=== PATIENT | female | born 1935 | race Caucasian/White ===

== ENCOUNTER 2017-10-17 18:46 | Inpatient (IN) | payer MEDICARE ==
[~2017-10-17] VITALS: Ht 162.6 cm; Wt 37.6 kg
[2017-10-17] MEDS ORDERED: SODIUM CHLORIDE 0.9% 1,000 ML IV ONE (18:54)
[2017-10-17] MEDS ORDERED: DIPHENHYDRAMINE 50MG/ML VIAL IV STA (18:54)
[2017-10-17] MEDS ORDERED: MORPHINE SULFATE 4 MG/ML CPJ (NOT FOR IM USE) IV STA (18:54)
[2017-10-17 19:51] LABS: HEMATOCRIT. 28.8 % (36.0-48.0); HEMOGLOBIN. 8.9 g/dL (12.0-16.0); MEAN CORPUSCULAR HEMOGLOBIN 22.5 pg (28.0-32.0); MEAN CORPUSCULAR VOLUME 72.9 fL (81.0-99.0); MEAN PLATELET VOLUME 8.5 fl (7.4-10.4); PLATELET 266 x1000/uL (130-400); RED BLOOD CELL COUNT 3.95 mill/uL (4.2-5.4); RED CELL DISTRIBUTION WIDTH 20.4 % (11.6-14.6)
[2017-10-17 19:57] LABS: INR 0.9; PROTHROMBIN TIME 9.7 sec (9.4-11.6)
[2017-10-17 19:58] LABS: CHLORIDE 107 mEq/L (98-107)
[2017-10-17 20:02] LABS: ETHANOL BLOOD < 10 mg/dL
[2017-10-17 21:11] LABS: PLATELET ESTIMATE NORMAL
[2017-10-17] MEDS ORDERED: HYDROCODONE/ACETAMINOPHEN 10/325MG TABLET PO ONE (22:00)
[2017-10-17] MEDS ORDERED: MORPHINE SULFATE 2 MG/ML CPJ (NOT FOR IM USE) IV ONE (23:30)
[2017-10-18] VITALS (7 sets, daily range): BP systolic 101–191; BP diastolic 59–85
[2017-10-18] MEDS ORDERED: ONDANSETRON HCL 4MG/2ML VIAL IV PRN (03:15)
[2017-10-18] MEDS ORDERED: DEXT 5%/0.45% NACL KCL 20MEQ/L 1,000 ML IV SCH (05:00)
[2017-10-18] MEDS ORDERED: CLONIDINE 0.1MG TABLET PO PRN (09:15)
[2017-10-18] MEDS ORDERED: LOSARTAN POTASSIUM 50 MG TABLET PO SCH (10:45)
[2017-10-18] MEDS ORDERED: HYDROCODONE/ACETAMINOPHEN 5/325MG TABLET PO PRN (11:00)
[2017-10-18 12:16] LABS: TOTAL IRON BINDING CAPACITY 313 ug/dL (250-450)
[2017-10-18] MEDS: DOCUSATE SODIUM 250MG CAPSULE PO SCH (16:15)
[2017-10-18] MEDS: LOSARTAN POTASSIUM 100 MG TABLET PO SCH (16:30)
[2017-10-18] MEDS: FUROSEMIDE 20MG TABLET PO SCH (18:34)
[2017-10-18] MEDS: NIFEDIPINE XL 30MG TAB PO SCH (18:35)
[2017-10-18] MEDS: FERROUS SULFATE 325MG TABLET PO SCH (18:35)
[2017-10-18] MEDS: MORPHINE SULFATE 4 MG/ML CPJ (NOT FOR IM USE) IV PRN (18:36)
[2017-10-19 00:05] VITALS: BP 125/86
[2017-10-19 04:09] VITALS: BP 118/54
[2017-10-19 05:41] LABS: HEMATOCRIT 28.6 % (36.0-48.0); HEMOGLOBIN 8.9 g/dL (12.0-16.0); MEAN CORPUSCULAR HEMOGLOBIN 22.6 pg (28.0-32.0); MEAN CORPUSCULAR VOLUME 72.9 fL (81.0-99.0); PLATELET 235 x1000/uL (130-400); RED BLOOD CELL COUNT 3.93 mill/uL (4.2-5.4); RED CELL DISTRIBUTION WIDTH 20.1 % (11.6-14.6)
[2017-10-19 06:18] LABS: CHLORIDE 104 mEq/L (98-107)
[2017-10-19 08:00] VITALS: BP 130/53
[2017-10-19] MEDS: FERROUS SULFATE 325MG TABLET PO SCH ×3 (08:51→17:50)
[2017-10-19] MEDS: DOCUSATE SODIUM 250MG CAPSULE PO SCH (08:51)
[2017-10-19] MEDS: FUROSEMIDE 20MG TABLET PO SCH (08:51)
[2017-10-19] MEDS: NIFEDIPINE XL 30MG TAB PO SCH (08:51)
[2017-10-19] MEDS: LOSARTAN POTASSIUM 100 MG TABLET PO SCH (08:51)
[2017-10-19] MEDS: MORPHINE SULFATE 4 MG/ML CPJ (NOT FOR IM USE) IV PRN (09:56)
[2017-10-19] MEDS: DEXT 5%/0.45% NACL 1000ML 1,000 ML IV SCH (11:00)
[2017-10-19 12:00] VITALS: BP 116/59
[2017-10-19 16:00] VITALS: BP 148/68
[2017-10-19 20:00] VITALS: BP 133/63
[2017-10-19 21:45] LABS: T4 FREE 1.22 ng/dL (0.76-1.46)
[2017-10-19 22:01] LABS: FOLIC ACID (FOLATE) SERUM 4.4 ng/mL (>5.38)
[2017-10-20] VITALS: BP 141/70
[2017-10-20 04:00] VITALS: BP 165/71
[2017-10-20] MEDS: DEXT 5%/0.45% NACL 1000ML 1,000 ML IV SCH (06:50)
[2017-10-20 08:00] VITALS: BP 157/69
[2017-10-20] MEDS: DOCUSATE SODIUM 250MG CAPSULE PO SCH (08:42)
[2017-10-20] MEDS: LOSARTAN POTASSIUM 100 MG TABLET PO SCH (08:42)
[2017-10-20] MEDS: FERROUS SULFATE 325MG TABLET PO SCH ×3 (08:42→16:50)
[2017-10-20] MEDS: NIFEDIPINE XL 30MG TAB PO SCH (08:42)
[2017-10-20 12:38] VITALS: BP 140/78
[2017-10-20] MEDS ORDERED: BISACODYL 10MG SUPP PR PRN (14:00)
[2017-10-20 15:18] LABS: LDL CHOLESTEROL 98 mg/dL (5-100)
[2017-10-20 15:21] LABS: HDL CHOLESTEROL 40 mg/dL (40-59)
[2017-10-20 16:15] VITALS: BP 125/77
[2017-10-20] MEDS: CHOLECALCIFEROL (D3) 1000 UNIT TABLET PO SCH (16:49)
[2017-10-20] MEDS: MORPHINE SULFATE 4 MG/ML CPJ (NOT FOR IM USE) IV PRN (16:49)
[2017-10-20] MEDS: SUCRALFATE 1 G/10 ML UDC PO SCH ×2 (16:50→22:01)
[2017-10-20] MEDS: OMEPRAZOLE 20MG CAPSULE EXTENDED RELEASE PO SCH ×2 (16:53→22:00)
[2017-10-20] MEDS ORDERED: SPIRONOLACTONE 25MG TABLET PO SCH (17:00)
[2017-10-20 20:00] VITALS: BP 139/65
[2017-10-20] MEDS ORDERED: ATORVASTATIN CALCIUM 20MG TABLET PO SCH (21:00)
[2017-10-21] VITALS: BP 143/65
[2017-10-21 04:00] VITALS: BP 151/63
[2017-10-21] MEDS: SUCRALFATE 1 G/10 ML UDC PO SCH ×3 (06:30→17:37)
[2017-10-21] MEDS: DEXT 5%/0.45% NACL 1000ML 1,000 ML IV SCH (06:30)
[2017-10-21] MEDS: OMEPRAZOLE 20MG CAPSULE EXTENDED RELEASE PO SCH (06:34)
[2017-10-21] MEDS: FERROUS SULFATE 325MG TABLET PO SCH ×2 (06:52→09:04)
[2017-10-21 06:57] LABS: MEAN CORPUSCULAR HEMOGLOBIN 22.9 pg (28.0-32.0); MEAN CORPUSCULAR VOLUME 73.8 fL (81.0-99.0); PLATELET 318 x1000/uL (130-400); RED BLOOD CELL COUNT 3.93 mill/uL (4.2-5.4)
[2017-10-21 07:09] LABS: CHLORIDE 106 mEq/L (98-107)
[2017-10-21 08:00] VITALS: BP 183/78
[2017-10-21] MEDS: DOCUSATE SODIUM 250MG CAPSULE PO SCH (09:04)
[2017-10-21] MEDS: LOSARTAN POTASSIUM 100 MG TABLET PO SCH (09:04)
[2017-10-21] MEDS: CHOLECALCIFEROL (D3) 1000 UNIT TABLET PO SCH (09:04)
[2017-10-21] MEDS: NIFEDIPINE XL 30MG TAB PO SCH (09:05)
[2017-10-21] MEDS ORDERED: CLOPIDOGREL 75MG TABLET PO SCH (09:15)
[2017-10-21] MEDS ORDERED: DOCUSATE SODIUM SUGAR FREE 100MG/10ML UDC PO SCH (10:30)
[2017-10-21] MEDS ORDERED: DOCUSATE SODIUM SUGAR FREE 100MG/10ML UDC NG SCH (11:00)
[2017-10-21 12:00] VITALS: BP 111/57
[2017-10-21] MEDS: MORPHINE SULFATE 4 MG/ML CPJ (NOT FOR IM USE) IV PRN ×2 (13:24→17:37)
[2017-10-21 16:00] VITALS: BP 110/56
[2017-10-21 17:37] VITALS: BP 110/56
== END 2017-10-21 18:33 | DRG 64 ==
LOC: ER 18:46 → 6EST 22:56 → EDBEDREQ 22:58 → EDBEDREQTM 22:58 → ENRESERV 23:42
PROVIDERS: ADMIT Internal Medicine; ATTEND Internal Medicine
DX: I63.9 Cerebral infarction, unspecified (principal); E43 Unspecified severe protein-calorie malnutrition; I50.41 Acute combined systolic (congestive) and diastolic (congestive) heart failure; Z68.1 Body mass index [BMI] 19.9 or less, adult; D50.9 Iron deficiency anemia, unspecified; M54.5 Low back pain; M81.0 Age-related osteoporosis without current pathological fracture; M34.9 Systemic sclerosis, unspecified; M48.02 Spinal stenosis, cervical region; M48.061 Spinal stenosis, lumbar region without neurogenic claudication; I11.0 Hypertensive heart disease with heart failure; E78.00 Pure hypercholesterolemia, unspecified; E78.5 Hyperlipidemia, unspecified; I07.1 Rheumatic tricuspid insufficiency; I27.20 Pulmonary hypertension, unspecified; I73.00 Raynaud's syndrome without gangrene; J44.9 Chronic obstructive pulmonary disease, unspecified; K22.0 Achalasia of cardia; M51.36 Other intervertebral disc degeneration, lumbar region; Z96.612 Presence of left artificial shoulder joint; Z96.641 Presence of right artificial hip joint; Z87.891 Personal history of nicotine dependence; Z90.710 Acquired absence of both cervix and uterus; Z79.899 Other long term (current) drug therapy; W18.39XA Other fall on same level, initial encounter; Y93.89 Activity, other specified; Y92.89 Other specified places as the place of occurrence of the external cause; Y99.8 Other external cause status
CPT/HCPCS: 36415; 70551; 71045; 72131; 72141; 72146; 72148; 72192; 80048; 80053; 80061; 82270; 82550; 82607; 82728; 82746; 83036; 83540; 83550; 83690; 83880; 84439; 84443; 84481; 84484; 85025; 85027; 85610; 92610; 93005; 93306; 93880; 93970; 96361; 96374; 96375; 97110; 97162; 97166; 97530; 99285; G0482; J1200; J2270; J3490; J7030

== ENCOUNTER 2017-10-21 19:26 | Inpatient (IN) | payer MEDICARE ==
[~2017-10-21] VITALS: Ht 162.6 cm; Wt 37.6 kg
[2017-10-21 20:00] VITALS: BP 132/61
[2017-10-21] MEDS ORDERED: CLONIDINE 0.1MG TABLET PO PRN (20:00)
[2017-10-21] MEDS ORDERED: MORPHINE SULFATE 4 MG/ML CPJ (NOT FOR IM USE) IV PRN (20:00)
[2017-10-21] MEDS ORDERED: BISACODYL 10MG SUPP PR PRN (20:00)
[2017-10-21 21:00] VITALS: BP 132/61
[2017-10-21] MEDS ORDERED: ONDANSETRON 4MG ODT PO PRN (21:00)
[2017-10-21] MEDS: ATORVASTATIN CALCIUM 20MG TABLET PO SCH (21:40)
[2017-10-21] MEDS: SUCRALFATE 1 G/10 ML UDC PO SCH (21:40)
[2017-10-21] MEDS: OMEPRAZOLE 20MG CAPSULE EXTENDED RELEASE PO SCH (21:41)
[2017-10-21] MEDS: DEXT 5%/0.45% NACL 1000ML 1,000 ML IV SCH (22:30)
[2017-10-22] MEDS: SUCRALFATE 1 G/10 ML UDC PO SCH ×4 (06:25→21:43)
[2017-10-22 07:44] LABS: HEMATOCRIT. 29.8 % (36.0-48.0); HEMOGLOBIN. 9.1 g/dL (12.0-16.0); MEAN CORPUSCULAR HEMOGLOBIN 22.5 pg (28.0-32.0); MEAN CORPUSCULAR VOLUME 73.1 fL (81.0-99.0); MEAN PLATELET VOLUME 7.9 fl (7.4-10.4); PLATELET 359 x1000/uL (130-400); RED BLOOD CELL COUNT 4.07 mill/uL (4.2-5.4); RED CELL DISTRIBUTION WIDTH 19.5 % (11.6-14.6)
[2017-10-22 07:47] LABS: CHLORIDE 105 mEq/L (98-107)
[2017-10-22 08:05] VITALS: BP 168/72
[2017-10-22] MEDS: CLOPIDOGREL 75MG TABLET PO SCH (09:47)
[2017-10-22] MEDS: FERROUS SULFATE 325MG TABLET PO SCH ×3 (09:47→17:16)
[2017-10-22] MEDS: CHOLECALCIFEROL (D3) 1000 UNIT TABLET PO SCH (09:48)
[2017-10-22] MEDS: NIFEDIPINE XL 30MG TAB PO SCH (09:49)
[2017-10-22] MEDS: HYDROCODONE/ACETAMINOPHEN 5/325MG TABLET PO PRN (09:49)
[2017-10-22] MEDS: LOSARTAN POTASSIUM 100 MG TABLET PO SCH (09:50)
[2017-10-22] MEDS: FOLIC ACID 1MG TABLET PO SCH (09:50)
[2017-10-22] MEDS: OMEPRAZOLE 20MG CAPSULE EXTENDED RELEASE PO SCH ×2 (09:50→21:43)
[2017-10-22] MEDS: DOCUSATE SODIUM SUGAR FREE 100MG/10ML UDC PO SCH (09:50)
[2017-10-22 10:14] LABS: NUCLEATED RED BLOOD CELLS 1 /100 WBC; PLATELET ESTIMATE NORMAL
[2017-10-22] MEDS: DEXT 5%/0.45% NACL 1000ML 1,000 ML IV SCH (18:37)
[2017-10-22 20:00] VITALS: BP 129/56
[2017-10-22] MEDS: ENOXAPARIN 30MG/0.3ML SYR SUBCUT SCH (21:43)
[2017-10-22] MEDS: ATORVASTATIN CALCIUM 20MG TABLET PO SCH (21:43)
[2017-10-22] MEDS: NEOMY SULF/BACITRAC ZN/POLY OINT 28GM TOP SCH (22:18)
[2017-10-23] MEDS: SUCRALFATE 1 G/10 ML UDC PO SCH ×4 (06:01→20:53)
[2017-10-23] MEDS: LOSARTAN POTASSIUM 100 MG TABLET PO SCH (08:35)
[2017-10-23] MEDS: HYDROCODONE/ACETAMINOPHEN 5/325MG TABLET PO PRN ×2 (08:36→14:34)
[2017-10-23] MEDS: DOCUSATE SODIUM SUGAR FREE 100MG/10ML UDC PO SCH (09:53)
[2017-10-23] MEDS: OMEPRAZOLE 20MG CAPSULE EXTENDED RELEASE PO SCH ×2 (09:54→20:53)
[2017-10-23] MEDS: FERROUS SULFATE 325MG TABLET PO SCH ×3 (09:54→17:00)
[2017-10-23] MEDS: CHOLECALCIFEROL (D3) 1000 UNIT TABLET PO SCH (09:54)
[2017-10-23] MEDS: NIFEDIPINE XL 30MG TAB PO SCH (09:55)
[2017-10-23] MEDS: FOLIC ACID 1MG TABLET PO SCH (09:55)
[2017-10-23] MEDS: CLOPIDOGREL 75MG TABLET PO SCH (09:55)
[2017-10-23] MEDS: NEOMY SULF/BACITRAC ZN/POLY OINT 28GM TOP SCH ×2 (10:02→20:53)
[2017-10-23] MEDS: DEXT 5%/0.45% NACL 1000ML 1,000 ML IV SCH (13:00)
[2017-10-23 20:00] VITALS: BP 158/68
[2017-10-23] MEDS: ATORVASTATIN CALCIUM 20MG TABLET PO SCH (20:53)
[2017-10-23] MEDS: ENOXAPARIN 30MG/0.3ML SYR SUBCUT SCH (20:53)
[2017-10-24] MEDS: SUCRALFATE 1 G/10 ML UDC PO SCH ×4 (06:25→20:43)
[2017-10-24 06:30] LABS: HEMATOCRIT. 28.1 % (36.0-48.0); HEMOGLOBIN. 8.8 g/dL (12.0-16.0); MEAN CORPUSCULAR HEMOGLOBIN 23.1 pg (28.0-32.0); MEAN CORPUSCULAR VOLUME 73.6 fL (81.0-99.0); MEAN PLATELET VOLUME 7.6 fl (7.4-10.4); PLATELET 368 x1000/uL (130-400); RED BLOOD CELL COUNT 3.82 mill/uL (4.2-5.4); RED CELL DISTRIBUTION WIDTH 19.8 % (11.6-14.6)
[2017-10-24 07:01] LABS: CHLORIDE 109 mEq/L (98-107)
[2017-10-24 07:08] LABS: FOLIC ACID (FOLATE) SERUM 8.1 ng/mL (>5.38)
[2017-10-24 07:13] LABS: PHOSPHORUS 2.5 mg/dL (2.5-4.9); TOTAL IRON BINDING CAPACITY 279 ug/dL (250-450)
[2017-10-24 08:05] VITALS: BP 193/66
[2017-10-24] MEDS: DEXT 5%/0.45% NACL 1000ML 1,000 ML IV SCH (08:27)
[2017-10-24] MEDS: NIFEDIPINE XL 30MG TAB PO SCH (08:28)
[2017-10-24] MEDS: FERROUS SULFATE 325MG TABLET PO SCH ×3 (08:30→16:54)
[2017-10-24] MEDS: LOSARTAN POTASSIUM 100 MG TABLET PO SCH (08:30)
[2017-10-24] MEDS: CHOLECALCIFEROL (D3) 1000 UNIT TABLET PO SCH (08:31)
[2017-10-24] MEDS: CLOPIDOGREL 75MG TABLET PO SCH (08:32)
[2017-10-24] MEDS: FOLIC ACID 1MG TABLET PO SCH (08:33)
[2017-10-24] MEDS: OMEPRAZOLE 20MG CAPSULE EXTENDED RELEASE PO SCH ×2 (08:34→20:44)
[2017-10-24] MEDS: DOCUSATE SODIUM SUGAR FREE 100MG/10ML UDC PO SCH (08:36)
[2017-10-24] MEDS: NEOMY SULF/BACITRAC ZN/POLY OINT 28GM TOP SCH ×2 (08:39→20:43)
[2017-10-24] MEDS ORDERED: POTASSIUM CHLORIDE 20MEQ TABLET SR PO SCH (09:30)
[2017-10-24 10:24] LABS: PLATELET ESTIMATE NORMAL
[2017-10-24 20:00] VITALS: BP 136/65
[2017-10-24] MEDS: ENOXAPARIN 30MG/0.3ML SYR SUBCUT SCH (20:43)
[2017-10-24] MEDS: ATORVASTATIN CALCIUM 20MG TABLET PO SCH (20:44)
[2017-10-25] MEDS: DEXT 5%/0.45% NACL 1000ML 1,000 ML IV SCH ×2 (04:25→23:12)
[2017-10-25] MEDS: SUCRALFATE 1 G/10 ML UDC PO SCH ×4 (06:19→18:30)
[2017-10-25 08:00] VITALS: BP 146/60
[2017-10-25] MEDS: DOCUSATE SODIUM SUGAR FREE 100MG/10ML UDC PO SCH (09:33)
[2017-10-25] MEDS: FERROUS SULFATE 325MG TABLET PO SCH ×3 (09:33→17:00)
[2017-10-25] MEDS: OMEPRAZOLE 20MG CAPSULE EXTENDED RELEASE PO SCH (09:33)
[2017-10-25] MEDS: CLOPIDOGREL 75MG TABLET PO SCH (09:34)
[2017-10-25] MEDS: CHOLECALCIFEROL (D3) 1000 UNIT TABLET PO SCH (09:34)
[2017-10-25] MEDS: LOSARTAN POTASSIUM 100 MG TABLET PO SCH (09:34)
[2017-10-25] MEDS: NIFEDIPINE XL 30MG TAB PO SCH (09:34)
[2017-10-25] MEDS: FOLIC ACID 1MG TABLET PO SCH (09:34)
[2017-10-25] MEDS: HYDROCODONE/ACETAMINOPHEN 5/325MG TABLET PO PRN (09:35)
[2017-10-25] MEDS: NEOMY SULF/BACITRAC ZN/POLY OINT 28GM TOP SCH ×2 (10:39→23:13)
[2017-10-25] MEDS ORDERED: HYDROCODONE/ACETAMINOPHEN 10/325MG TABLET PO PRN (16:45)
[2017-10-25] MEDS ORDERED: CARISOPRODOL 350 MG TABLET PO PRN (16:45)
[2017-10-25] MEDS: LIDOCAINE 5% PATCH TOP SCH (17:36)
[2017-10-25 20:00] VITALS: BP 155/59
[2017-10-25] MEDS: ATORVASTATIN CALCIUM 20MG TABLET PO SCH (21:00)
[2017-10-25] MEDS: ENOXAPARIN 30MG/0.3ML SYR SUBCUT SCH ×2 (21:00→23:48)
[2017-10-25] MEDS ORDERED: ONDANSETRON 4MG ODT PO PRN (22:30)
[2017-10-26] MEDS ORDERED: ACETAMINOPHEN 650MG SUPP PR PRN
[2017-10-26] MEDS ORDERED: IRON SUCROSE COMPLEX 100 MG in SODIUM CHLORIDE 0.9% 100 ML IV SCH (05:00)
[2017-10-26 06:57] LABS: HEMATOCRIT. 28.8 % (36.0-48.0); MEAN CORPUSCULAR HEMOGLOBIN 23.4 pg (28.0-32.0); MEAN CORPUSCULAR VOLUME 74.5 fL (81.0-99.0); MEAN PLATELET VOLUME 7.8 fl (7.4-10.4); PLATELET 361 x1000/uL (130-400); RED BLOOD CELL COUNT 3.86 mill/uL (4.2-5.4)
[2017-10-26 07:20] LABS: CHLORIDE 109 mEq/L (98-107)
[2017-10-26 08:00] VITALS: BP 191/67
[2017-10-26] MEDS: LIDOCAINE 5% PATCH TOP SCH (08:12)
[2017-10-26] MEDS: NEOMY SULF/BACITRAC ZN/POLY OINT 28GM TOP SCH (08:16)
[2017-10-26] MEDS ORDERED: PANTOPRAZOLE SODIUM 40 MG/VIAL IV SCH (09:00)
[2017-10-26] MEDS ORDERED: HYDRALAZINE 20MG/ML VIAL IV PRN (10:30)
[2017-10-26] MEDS ORDERED: KCL 20MEQ/100ML PREMIX 100 ML IV SCH (11:00)
[2017-10-26] MEDS ORDERED: HYDRALAZINE 10 MG in SODIUM CHLORIDE 0.9% 50 ML IV PRN (12:00)
[2017-10-26] MEDS ORDERED: MORPHINE SULFATE 4 MG/ML CPJ (NOT FOR IM USE) IV PRN ×2 (12:00)
[2017-10-26 13:07] VITALS: BP 199/71
[2017-10-26 15:14] LABS: PLATELET ESTIMATE NORMAL
[2017-10-26] MEDS ORDERED: OMEP40CA34 PO (22:15)
[2017-10-26] MEDS ORDERED: SPIR25TA6 PO (22:15)
[2017-10-26] MEDS ORDERED: RANI150T43 PO (22:15)
[2017-10-26] MEDS ORDERED: SUCR1TAB30 MT (22:15)
[2017-10-26] MEDS ORDERED: CHOL20004 PO (22:15)
[2017-10-26] MEDS ORDERED: FERR324T4 PO (22:15)
[2017-10-26] MEDS ORDERED: ATOR20TA MT (22:15)
[2017-10-30 17:08] LABS: 25-HYDROXY VITAMIN D3 11 ng/mL (.)
== END 2017-10-26 14:33 | disposition short-term general hospital (02) | DRG 64 ==
PROVIDERS: ADMIT Physical Medicine & Rehabilitation Spinal Cord Injury Medicine; ATTEND Internal Medicine
DX: I63.9 Cerebral infarction, unspecified (principal); E43 Unspecified severe protein-calorie malnutrition; I50.41 Acute combined systolic (congestive) and diastolic (congestive) heart failure; Z68.1 Body mass index [BMI] 19.9 or less, adult; I73.00 Raynaud's syndrome without gangrene; K22.0 Achalasia of cardia; M34.9 Systemic sclerosis, unspecified; E78.00 Pure hypercholesterolemia, unspecified; M81.0 Age-related osteoporosis without current pathological fracture; I11.0 Hypertensive heart disease with heart failure; R13.10 Dysphagia, unspecified; D50.9 Iron deficiency anemia, unspecified; R47.81 Slurred speech; M19.90 Unspecified osteoarthritis, unspecified site; M48.02 Spinal stenosis, cervical region; M48.061 Spinal stenosis, lumbar region without neurogenic claudication; Z96.619 Presence of unspecified artificial shoulder joint; Z96.641 Presence of right artificial hip joint; I16.0 Hypertensive urgency; R26.9 Unspecified abnormalities of gait and mobility; R53.81 Other malaise; E53.8 Deficiency of other specified B group vitamins; I27.20 Pulmonary hypertension, unspecified; E78.5 Hyperlipidemia, unspecified; M47.26 Other spondylosis with radiculopathy, lumbar region; M47.813 Spondylosis without myelopathy or radiculopathy, cervicothoracic region; Z90.710 Acquired absence of both cervix and uterus; Z98.49 Cataract extraction status, unspecified eye; Z88.8 Allergy status to other drugs, medicaments and biological substances; Z88.1 Allergy status to other antibiotic agents; Z82.49 Family history of ischemic heart disease and other diseases of the circulatory system; Z87.891 Personal history of nicotine dependence
CPT/HCPCS: 36415; 80048; 80053; 82270; 82306; 82607; 82728; 82746; 83036; 83540; 83550; 83735; 84100; 84134; 84443; 84630; 85025; 87086; 92523; 92610; 93970; 97110; 97116; 97162; 97167; 97530; 97535; C9113; G0515; J0360; J1650; J2270; J3480; J3490; J7050

== ENCOUNTER 2017-10-26 15:19 | Inpatient (IN) | payer MEDICARE ==
[~2017-10-26] VITALS: Ht 162.6 cm; Wt 46.3 kg
[2017-10-26 16:00] VITALS: BP 167/70
[2017-10-26 19:05] VITALS: BP 167/70
[2017-10-26 20:00] VITALS: BP 166/76
[2017-10-26] MEDS: ENALAPRIL 2.5MG/2ML VIAL 2ML IV SCH (20:49)
[2017-10-26] MEDS ORDERED: FERR324T4 PO (22:15)
[2017-10-26] MEDS ORDERED: SUCR1TAB30 MT (22:15)
[2017-10-26] MEDS ORDERED: SPIR25TA6 PO (22:15)
[2017-10-26] MEDS ORDERED: CHOL20004 PO (22:15)
[2017-10-26] MEDS ORDERED: OMEP40CA34 PO (22:15)
[2017-10-26] MEDS ORDERED: RANI150T43 PO (22:15)
[2017-10-26] MEDS ORDERED: ATOR20TA MT (22:15)
[2017-10-27] VITALS: BP 178/66
[2017-10-27] MEDS: ENALAPRIL 2.5MG/2ML VIAL 2ML IV SCH ×4 (00:03→21:18)
[2017-10-27] MEDS: HYDRALAZINE 20MG/ML VIAL IV PRN (03:32)
[2017-10-27 04:00] VITALS: BP 165/56
[2017-10-27 05:33] LABS: PARTIAL THROMBOPLASTIN TIME 28.8 sec (23.4-31.0); PROTHROMBIN TIME 10.5 sec (9.4-11.6)
[2017-10-27 05:45] LABS: HEMATOCRIT. 33.7 % (36.0-48.0); HEMOGLOBIN. 10.3 g/dL (12.0-16.0); MEAN CORPUSCULAR HEMOGLOBIN 22.8 pg (28.0-32.0); MEAN CORPUSCULAR VOLUME 74.3 fL (81.0-99.0); MEAN PLATELET VOLUME 8.1 fl (7.4-10.4); PLATELET 451 x1000/uL (130-400); RED BLOOD CELL COUNT 4.54 mill/uL (4.2-5.4)
[2017-10-27 06:19] LABS: CHLORIDE 107 mEq/L (98-107)
[2017-10-27 08:00] VITALS: BP 116/54
[2017-10-27] MEDS ORDERED: MAGNESIUM 2 G PREMIX 50 ML IV SCH (10:00)
[2017-10-27] MEDS: PANTOPRAZOLE SODIUM 40 MG/VIAL IV SCH (10:17)
[2017-10-27] MEDS: KCL 20MEQ/100ML PREMIX 100 ML IV SCH ×2 (10:18→18:01)
[2017-10-27 10:20] LABS: PLATELET ESTIMATE SLIGHTLY INCREASED
[2017-10-27 12:00] VITALS: BP 137/56
[2017-10-27] MEDS ORDERED: MORPHINE SULFATE 4 MG/ML CPJ (NOT FOR IM USE) IV PRN (12:15)
[2017-10-27] MEDS: ENOXAPARIN 30MG/0.3ML SYR SUBCUT SCH (13:00)
[2017-10-27] MEDS: MORPHINE SULFATE 4 MG/ML CPJ (NOT FOR IM USE) IV PRN (13:16)
[2017-10-27] MEDS ORDERED: SODIUM CHLORIDE 0.9% 10ML VIAL ONE (13:37)
[2017-10-27] MEDS ORDERED: MIDAZOLAM HCL 5 MG/5 ML VIAL ONE (15:53)
[2017-10-27] MEDS ORDERED: FENTANYL CITRATE/PF 50MCG/ML 2ML VIAL ONE (15:53)
[2017-10-27] MEDS ORDERED: SIMETHICONE 40 MG/0.6 ML 30ML ONE (16:00)
[2017-10-27] MEDS ORDERED: MIDAZOLAM HCL 2 MG/2 ML VIAL IV PRN (16:00)
[2017-10-27] MEDS ORDERED: CEFAZOLIN 1000MG PREMIX 50 ML IV NR (16:00)
[2017-10-27 20:11] VITALS: BP 161/61
[2017-10-28 00:03] VITALS: BP 136/45
[2017-10-28 04:00] VITALS: BP 161/61
[2017-10-28] MEDS: ENALAPRIL 2.5MG/2ML VIAL 2ML IV SCH ×4 (04:39→18:50)
[2017-10-28] MEDS: DEXT 5%/0.45% NACL 1000ML 1,000 ML IV SCH ×2 (04:41→04:43)
[2017-10-28 06:40] LABS: CHLORIDE 107 mEq/L (98-107)
[2017-10-28 07:11] LABS: HEMATOCRIT. 29.7 % (36.0-48.0); HEMOGLOBIN. 9.2 g/dL (12.0-16.0); MEAN CORPUSCULAR VOLUME 74.2 fL (81.0-99.0); MEAN PLATELET VOLUME 7.9 fl (7.4-10.4); PLATELET 396 x1000/uL (130-400); RED BLOOD CELL COUNT 4.01 mill/uL (4.2-5.4); RED CELL DISTRIBUTION WIDTH 20.6 % (11.6-14.6)
[2017-10-28 08:00] VITALS: BP 161/53
[2017-10-28] MEDS: PANTOPRAZOLE SODIUM 40 MG/VIAL IV SCH (09:28)
[2017-10-28 09:40] LABS: PLATELET ESTIMATE NORMAL
[2017-10-28] MEDS: DOCUSATE SODIUM SUGAR FREE 100MG/10ML UDC NG SCH (11:15)
[2017-10-28] MEDS: LOSARTAN POTASSIUM 50 MG TABLET PO SCH (11:15)
[2017-10-28] MEDS ORDERED: CLONIDINE 0.1MG TABLET PO PRN (11:15)
[2017-10-28] MEDS ORDERED: CARISOPRODOL 350 MG TABLET PO PRN (11:15)
[2017-10-28] MEDS ORDERED: HYDROCODONE/ACETAMINOPHEN 5/325MG TABLET PO PRN (11:15)
[2017-10-28] MEDS ORDERED: BISACODYL 10MG SUPP PR PRN (11:45)
[2017-10-28 12:00] VITALS: BP 170/58
[2017-10-28] MEDS: SUCRALFATE 1 G/10 ML UDC PO SCH ×3 (12:32→21:00)
[2017-10-28] MEDS: FERROUS SULFATE 300MG/5ML UDC PO SCH ×2 (12:32→18:10)
[2017-10-28] MEDS: IRON SUCROSE COMPLEX 100 MG/5 ML ML IV SCH (13:01)
[2017-10-28] MEDS: ENOXAPARIN 30MG/0.3ML SYR SUBCUT SCH (13:02)
[2017-10-28 16:00] VITALS: BP 153/74
[2017-10-28 20:41] VITALS: BP 157/72
[2017-10-28] MEDS: ATORVASTATIN CALCIUM 20MG TABLET PO SCH (21:00)
[2017-10-29] MEDS: ENALAPRIL 2.5MG/2ML VIAL 2ML IV SCH ×3 (00:26→08:06)
[2017-10-29 00:28] VITALS: BP 152/66
[2017-10-29] MEDS: DEXT 5%/0.45% NACL 1000ML 1,000 ML IV SCH ×2 (02:35→22:35)
[2017-10-29 04:20] VITALS: BP 137/52
[2017-10-29] MEDS ORDERED: BUPIVACAINE HCL/PF 0.5% (5MG/ML) 10ML ONE (06:59)
[2017-10-29] MEDS ORDERED: SKIN ADHESIVE 0.7 GM EA TOP ONE (06:59)
[2017-10-29 07:02] LABS: CHLORIDE 107 mEq/L (98-107)
[2017-10-29] MEDS ORDERED: OMEPRAZOLE 20MG CAPSULE EXTENDED RELEASE PO SCH (07:40)
[2017-10-29] MEDS: SUCRALFATE 1 G/10 ML UDC PO SCH ×2 (07:40→20:36)
[2017-10-29 07:50] LABS: HEMATOCRIT 27.3 % (36.0-48.0); HEMOGLOBIN 8.7 g/dL (12.0-16.0); MEAN CORPUSCULAR HEMOGLOBIN 23.5 pg (28.0-32.0); MEAN CORPUSCULAR VOLUME 73.8 fL (81.0-99.0); PLATELET 382 x1000/uL (130-400); RED BLOOD CELL COUNT 3.71 mill/uL (4.2-5.4); RED CELL DISTRIBUTION WIDTH 20.9 % (11.6-14.6)
[2017-10-29 08:00] VITALS: BP 182/81
[2017-10-29] MEDS: FERROUS SULFATE 300MG/5ML UDC PO SCH ×2 (08:10→20:44)
[2017-10-29] MEDS ORDERED: PROPOFOL 200MG/20ML VIAL IV ONE (08:15)
[2017-10-29] MEDS ORDERED: ROCURONIUM BROMIDE 10MG/ML VIAL 5ML IV ONE (08:15)
[2017-10-29] MEDS ORDERED: NEOSTIGMINE METHYLSULFATE 1MG/ML 10 ML VIAL ONE (08:15)
[2017-10-29] MEDS ORDERED: FENTANYL CITRATE/PF 50MCG/ML 2ML VIAL ONE (08:15)
[2017-10-29] MEDS ORDERED: MIDAZOLAM HCL 2 MG/2 ML VIAL ONE (08:15)
[2017-10-29] MEDS ORDERED: GLYCOPYRROLATE 0.2 MG/ML 2ML VIAL ONE (08:15)
[2017-10-29] MEDS ORDERED: SODIUM CHLORIDE 0.9% 10ML VIAL ONE (08:16)
[2017-10-29] MEDS ORDERED: EPHEDRINE SULFATE 50MG/ML VIAL ONE (08:16)
[2017-10-29] MEDS ORDERED: PHENYLEPHRINE HCL 10 MG/ML 1ML (IV VIAL) IV ONE (08:16)
[2017-10-29] MEDS ORDERED: LIDOCAINE HCL/PF 1% 10 MG/ML 5ML VIAL ONE (08:16)
[2017-10-29] MEDS ORDERED: METOCLOPRAMIDE HCL 10MG/2ML VIAL ONE (08:16)
[2017-10-29] MEDS ORDERED: CEFAZOLIN SODIUM 1000MG/VIAL ONE (08:16)
[2017-10-29] MEDS ORDERED: SUCCINYLCHOLINE CHLORIDE 200MG/10ML VIAL IV ONE (08:16)
[2017-10-29] MEDS ORDERED: ONDANSETRON HCL 4MG/2ML VIAL ONE (08:16)
[2017-10-29] MEDS ORDERED: ALBUMIN HUMAN 12.5G/250ML (5%) IV ONE (08:35)
[2017-10-29] MEDS: PANTOPRAZOLE SODIUM 40 MG/VIAL IV SCH (08:43)
[2017-10-29] MEDS: CLOPIDOGREL 75MG TABLET PO SCH (08:44)
[2017-10-29] MEDS: LOSARTAN POTASSIUM 50 MG TABLET PO SCH ×2 (08:44→20:36)
[2017-10-29] MEDS: DOCUSATE SODIUM SUGAR FREE 100MG/10ML UDC NG SCH (08:44)
[2017-10-29] MEDS ORDERED: HYDRALAZINE 20MG/ML VIAL ONE (09:27)
[2017-10-29] MEDS ORDERED: SODIUM CHLORIDE 0.9% 1,000 ML IV ONE (09:53)
[2017-10-29] MEDS ORDERED: HYDROMORPHONE HCL/PF 2MG/ML CPJ IV PRN (10:00)
[2017-10-29] MEDS ORDERED: ONDANSETRON HCL 4MG/2ML VIAL IV PRN (10:00)
[2017-10-29] MEDS ORDERED: CLONIDINE 0.1MG TABLET PO PRN (11:00)
[2017-10-29 11:23] LABS: BG BASE EXCESS -3.5 mmol/L (-2.0-2.0); BG FRACTION INSPIRED OXYGEN 80; BG HCO3 ACT 21.3 mmol/L (22.0-26.0); BG METHEMOGLOBIN 0.5 % (0.0-1.5); BG OXYHEMOGLOBIN 97.5 % (94.0-97.0); BG PCO2 37.4 mmHg (35.0-45.0); BG PH 7.373 (7.350-7.450); BG PO2 118.8 mmHg (75.0-100.0); BG SAMPLE SITE RIGHT RADIAL; BG TOTAL HEMOGLOBIN 10.5 g/dL (12.0-18.0); BG VENT MODE T-TUBE
[2017-10-29] MEDS: MORPHINE SULFATE 4 MG/ML CPJ (NOT FOR IM USE) IV PRN (13:04)
[2017-10-29] MEDS: HYDROMORPHONE HCL/PF 2MG/ML CPJ IV PRN ×4 (15:34→16:03)
[2017-10-29 20:00] VITALS: BP 142/61
[2017-10-29] MEDS ORDERED: ATORVASTATIN CALCIUM 20MG TABLET PO SCH (20:15)
[2017-10-29] MEDS ORDERED: IPRATROPIUM/ALBUTEROL 0.5-3(2.5)MG/3ML NEB HHN PRN (20:30)
[2017-10-29] MEDS: ATORVASTATIN CALCIUM 20MG TABLET PO SCH (20:36)
[2017-10-29] MEDS: IRON SUCROSE COMPLEX 100 MG/5 ML ML IV SCH (20:40)
[2017-10-29] MEDS: NEBIVOLOL HCL 5 MG TABLET PO SCH (20:40)
[2017-10-29] MEDS: IPRATROPIUM/ALBUTEROL 0.5-3(2.5)MG/3ML NEB HHN SCH ×2 (21:12→23:54)
[2017-10-29 21:34] LABS: BG BASE EXCESS -6.4 mmol/L (-2.0-2.0); BG CARBOXYHEMOGLOBIN 0.8 % (0.5-1.5); BG DEOXYHEMOGLOBIN 5.3 % (0.0-5.0); BG FRACTION INSPIRED OXYGEN 60; BG HCO3 ACT 21.5 mmol/L (22.0-26.0); BG METHEMOGLOBIN 0.2 % (0.0-1.5); BG OXYGEN SATURATION 94.6 % (92.0-98.5); BG OXYHEMOGLOBIN 93.7 % (94.0-97.0); BG PCO2 53.4 mmHg (35.0-45.0); BG PH 7.223 (7.350-7.450); BG PO2 85.4 mmHg (75.0-100.0); BG SAMPLE SITE LEFT RADIAL; BG TOTAL HEMOGLOBIN 12.1 g/dL (12.0-18.0); BG VENT MODE MASK - SIMPLE
[2017-10-29 22:00] VITALS: BP 120/57
[2017-10-29] MEDS: ENOXAPARIN 30MG/0.3ML SYR SUBCUT SCH (22:16)
[2017-10-30] VITALS (11 sets, daily range): BP systolic 109–138; BP diastolic 46–77
[2017-10-30] MEDS: ENALAPRIL 2.5MG/2ML VIAL 2ML IV SCH ×6 (00:53→23:29)
[2017-10-30] MEDS: IPRATROPIUM/ALBUTEROL 0.5-3(2.5)MG/3ML NEB HHN SCH ×5 (04:35→20:54)
[2017-10-30] MEDS: SUCRALFATE 1 G/10 ML UDC PO SCH ×4 (05:53→20:42)
[2017-10-30 06:57] LABS: HEMATOCRIT 30.3 % (36.0-48.0); HEMOGLOBIN 9.2 g/dL (12.0-16.0); MEAN CORPUSCULAR HEMOGLOBIN 23.3 pg (28.0-32.0); MEAN CORPUSCULAR VOLUME 76.6 fL (81.0-99.0); PLATELET 375 x1000/uL (130-400); RED BLOOD CELL COUNT 3.96 mill/uL (4.2-5.4); RED CELL DISTRIBUTION WIDTH 21.3 % (11.6-14.6)
[2017-10-30] MEDS: NEOMY SULF/BACITRAC ZN/POLY OINT 28GM TOP SCH ×2 (08:51→21:38)
[2017-10-30] MEDS: DOCUSATE SODIUM SUGAR FREE 100MG/10ML UDC NG SCH (08:51)
[2017-10-30] MEDS: CLOPIDOGREL 75MG TABLET PO SCH (08:51)
[2017-10-30] MEDS: FERROUS SULFATE 300MG/5ML UDC PO SCH ×3 (08:51→14:05)
[2017-10-30] MEDS: PANTOPRAZOLE SODIUM 40 MG/VIAL IV SCH (08:51)
[2017-10-30] MEDS: LOSARTAN POTASSIUM 50 MG TABLET PO SCH ×2 (08:52→20:43)
[2017-10-30] MEDS: NEBIVOLOL HCL 5 MG TABLET PO SCH (08:54)
[2017-10-30 10:07] LABS: BG BASE EXCESS -3.7 mmol/L (-2.0-2.0); BG BILEVEL POS AIRWAY PRESSURE 15/5; BG CARBOXYHEMOGLOBIN 0.1 % (0.5-1.5); BG DEOXYHEMOGLOBIN 3.7 % (0.0-5.0); BG FRACTION INSPIRED OXYGEN 50; BG HCO3 ACT 21.7 mmol/L (22.0-26.0); BG METHEMOGLOBIN 0.2 % (0.0-1.5); BG OXYGEN SATURATION 96.3 % (92.0-98.5); BG PCO2 40.5 mmHg (35.0-45.0); BG PH 7.347 (7.350-7.450); BG PO2 90.9 mmHg (75.0-100.0); BG SAMPLE SITE RIGHT RADIAL; BG TOTAL HEMOGLOBIN 9.8 g/dL (12.0-18.0); BG VENT MODE MASK - BIPAP; BG VENT RATE 16 set
[2017-10-30] MEDS: IRON SUCROSE COMPLEX 100 MG/5 ML ML IV SCH (13:34)
[2017-10-30] MEDS: DEXT 5%/0.45% NACL 1000ML 1,000 ML IV SCH (16:57)
[2017-10-30] MEDS: ENOXAPARIN 30MG/0.3ML SYR SUBCUT SCH (20:43)
[2017-10-30] MEDS: ATORVASTATIN CALCIUM 20MG TABLET PO SCH (20:43)
[2017-10-31] VITALS (14 sets, daily range): BP systolic 95–153; BP diastolic 48–71
[2017-10-31] MEDS: IPRATROPIUM/ALBUTEROL 0.5-3(2.5)MG/3ML NEB HHN SCH ×6 (01:02→20:49)
[2017-10-31] MEDS: ENALAPRIL 2.5MG/2ML VIAL 2ML IV SCH ×4 (06:05→23:48)
[2017-10-31] MEDS: FERROUS SULFATE 300MG/5ML UDC PO SCH ×3 (06:05→19:00)
[2017-10-31] MEDS: SUCRALFATE 1 G/10 ML UDC PO SCH ×4 (06:05→21:43)
[2017-10-31 06:33] LABS: HEMATOCRIT. 27.5 % (36.0-48.0); HEMOGLOBIN. 8.5 g/dL (12.0-16.0); MEAN CORPUSCULAR HEMOGLOBIN 23.4 pg (28.0-32.0); MEAN CORPUSCULAR VOLUME 75.3 fL (81.0-99.0); PLATELET 331 x1000/uL (130-400); RED BLOOD CELL COUNT 3.65 mill/uL (4.2-5.4); RED CELL DISTRIBUTION WIDTH 21.1 % (11.6-14.6)
[2017-10-31 06:43] LABS: CHLORIDE 106 mEq/L (98-107)
[2017-10-31] MEDS: FAMOTIDINE 20MG TABLET PO SCH (08:51)
[2017-10-31] MEDS: NEOMY SULF/BACITRAC ZN/POLY OINT 28GM TOP SCH ×2 (08:51→21:45)
[2017-10-31] MEDS: CLOPIDOGREL 75MG TABLET PO SCH (08:52)
[2017-10-31] MEDS: DOCUSATE SODIUM SUGAR FREE 100MG/10ML UDC NG SCH (08:52)
[2017-10-31] MEDS: LOSARTAN POTASSIUM 50 MG TABLET PO SCH ×2 (08:52→21:44)
[2017-10-31] MEDS: NEBIVOLOL HCL 5 MG TABLET PO SCH (08:52)
[2017-10-31] MEDS ORDERED: POTASSIUM CHLORIDE 20MEQ/PACKET GT NR (09:30)
[2017-10-31] MEDS ORDERED: POTASSIUM CHLORIDE 20MEQ TABLET SR PO ONE (10:30)
[2017-10-31] MEDS: PIPERACILLIN/TAZ 2.25G PREMIX 50 ML IV SCH ×3 (11:30→23:47)
[2017-10-31 12:04] LABS: PLATELET ESTIMATE NORMAL
[2017-10-31] MEDS: DEXT 5%/0.45% NACL 1000ML 1,000 ML IV SCH (13:18)
[2017-10-31] MEDS ORDERED: FUROSEMIDE 40MG/4ML VIAL IVP NR (14:15)
[2017-10-31] MEDS: ATORVASTATIN CALCIUM 20MG TABLET PO SCH (21:44)
[2017-10-31] MEDS: ENOXAPARIN 30MG/0.3ML SYR SUBCUT SCH (21:44)
[2017-11-01] VITALS (13 sets, daily range): BP systolic 100–161; BP diastolic 48–81
[2017-11-01] MEDS: IPRATROPIUM/ALBUTEROL 0.5-3(2.5)MG/3ML NEB HHN SCH ×6 (00:14→20:33)
[2017-11-01] MEDS: ACETYLCYSTEINE 100MG/ML 10% VIAL 4ML INH SCH ×3 (00:51→15:54)
[2017-11-01 06:42] LABS: HEMATOCRIT. 29.1 % (36.0-48.0); MEAN CORPUSCULAR HEMOGLOBIN 23.3 pg (28.0-32.0); MEAN CORPUSCULAR VOLUME 75.1 fL (81.0-99.0); MEAN PLATELET VOLUME 8.3 fl (7.4-10.4); PLATELET 325 x1000/uL (130-400); RED BLOOD CELL COUNT 3.88 mill/uL (4.2-5.4)
[2017-11-01 06:50] LABS: CHLORIDE 104 mEq/L (98-107)
[2017-11-01] MEDS: ENALAPRIL 2.5MG/2ML VIAL 2ML IV SCH ×3 (06:50→17:00)
[2017-11-01] MEDS: PIPERACILLIN/TAZ 2.25G PREMIX 50 ML IV SCH ×3 (06:50→17:00)
[2017-11-01] MEDS: FERROUS SULFATE 300MG/5ML UDC PO SCH ×3 (07:22→16:59)
[2017-11-01] MEDS: SUCRALFATE 1 G/10 ML UDC PO SCH ×4 (07:22→21:00)
[2017-11-01] MEDS: DEXT 5%/0.45% NACL 1000ML 1,000 ML IV SCH (08:24)
[2017-11-01] MEDS: FAMOTIDINE 20MG TABLET PO SCH (08:24)
[2017-11-01] MEDS: NEBIVOLOL HCL 5 MG TABLET PO SCH (08:24)
[2017-11-01] MEDS: LOSARTAN POTASSIUM 50 MG TABLET PO SCH ×2 (08:24→21:00)
[2017-11-01] MEDS: DOCUSATE SODIUM SUGAR FREE 100MG/10ML UDC NG SCH (08:24)
[2017-11-01] MEDS: CLOPIDOGREL 75MG TABLET PO SCH (08:24)
[2017-11-01] MEDS: NEOMY SULF/BACITRAC ZN/POLY OINT 28GM TOP SCH ×2 (08:25→21:00)
[2017-11-01 09:01] LABS: PLATELET ESTIMATE NORMAL
[2017-11-01] MEDS ORDERED: POTASSIUM CHLORIDE 20MEQ TABLET SR PO NR (10:00)
[2017-11-01] MEDS: ATORVASTATIN CALCIUM 20MG TABLET PO SCH (21:00)
[2017-11-01] MEDS: ENOXAPARIN 30MG/0.3ML SYR SUBCUT SCH (22:33)
[2017-11-02] VITALS (22 sets, daily range): BP systolic 133–213; BP diastolic 1–115
[2017-11-02] MEDS: ACETYLCYSTEINE 100MG/ML 10% VIAL 4ML INH SCH ×3 (00:51→14:00)
[2017-11-02] MEDS: IPRATROPIUM/ALBUTEROL 0.5-3(2.5)MG/3ML NEB HHN SCH ×6 (00:54→20:54)
[2017-11-02] MEDS: PIPERACILLIN/TAZ 2.25G PREMIX 50 ML IV SCH ×4 (02:40→17:54)
[2017-11-02] MEDS: DEXT 5%/0.45% NACL 1000ML 1,000 ML IV SCH (04:40)
[2017-11-02] MEDS: ENALAPRIL 2.5MG/2ML VIAL 2ML IV SCH ×4 (06:00→17:55)
[2017-11-02] MEDS: SUCRALFATE 1 G/10 ML UDC PO SCH ×4 (06:29→20:30)
[2017-11-02 06:33] LABS: CHLORIDE 105 mEq/L (98-107); HEMATOCRIT. 27.3 % (36.0-48.0); HEMOGLOBIN. 8.8 g/dL (12.0-16.0); MEAN CORPUSCULAR HEMOGLOBIN 24.7 pg (28.0-32.0); MEAN CORPUSCULAR VOLUME 76.6 fL (81.0-99.0); MEAN PLATELET VOLUME 8.2 fl (7.4-10.4); PLATELET 338 x1000/uL (130-400); RED BLOOD CELL COUNT 3.57 mill/uL (4.2-5.4); RED CELL DISTRIBUTION WIDTH 21.2 % (11.6-14.6)
[2017-11-02] MEDS: FERROUS SULFATE 300MG/5ML UDC PO SCH ×3 (07:20→16:48)
[2017-11-02] MEDS: CLOPIDOGREL 75MG TABLET PO SCH (09:00)
[2017-11-02] MEDS: FAMOTIDINE 20MG TABLET PO SCH (09:00)
[2017-11-02] MEDS: NEBIVOLOL HCL 5 MG TABLET PO SCH (09:00)
[2017-11-02] MEDS: DOCUSATE SODIUM SUGAR FREE 100MG/10ML UDC NG SCH (09:00)
[2017-11-02] MEDS: LOSARTAN POTASSIUM 50 MG TABLET PO SCH ×2 (09:00→20:30)
[2017-11-02] MEDS: NEOMY SULF/BACITRAC ZN/POLY OINT 28GM TOP SCH ×2 (09:41→21:27)
[2017-11-02] MEDS ORDERED: LABETALOL HCL 20MG/4ML CARPUJECT IV PRN (10:30)
[2017-11-02] MEDS ORDERED: POTASSIUM CHLORIDE INJ 40 MEQ in DEXT 5% WATER 250 ML IV SCH (11:00)
[2017-11-02] MEDS ORDERED: IOHEXOL-300 50 ML BOTTLE IV ONE ×2 (14:45→15:17)
[2017-11-02] MEDS ORDERED: LIDOCAINE HCL 2% JELLY 5ML ONE ×2 (15:17→15:30)
[2017-11-02] MEDS ORDERED: FENTANYL CITRATE/PF 50MCG/ML 2ML VIAL ONE (15:18)
[2017-11-02] MEDS ORDERED: MIDAZOLAM HCL 2 MG/2 ML VIAL ONE (15:19)
[2017-11-02] MEDS ORDERED: LIDOCAINE HCL 1% 20ML VIAL (Pyxis) INJ ONE (15:28)
[2017-11-02] MEDS ORDERED: MIDAZOLAM HCL 5 MG/5 ML VIAL IV ONE (16:00)
[2017-11-02] MEDS ORDERED: FENTANYL CITRATE/PF 50MCG/ML 2ML VIAL IV ONE (16:00)
[2017-11-02 16:59] LABS: PLATELET ESTIMATE NORMAL
[2017-11-02] MEDS: ATORVASTATIN CALCIUM 20MG TABLET PO SCH (20:30)
[2017-11-02] MEDS ORDERED: MORPHINE SULFATE 4 MG/ML CPJ (NOT FOR IM USE) IV PRN (20:45)
[2017-11-02] MEDS: ENOXAPARIN 30MG/0.3ML SYR SUBCUT SCH (21:22)
[2017-11-03] VITALS (12 sets, daily range): BP systolic 106–163; BP diastolic 50–93
[2017-11-03] MEDS: PIPERACILLIN/TAZ 2.25G PREMIX 50 ML IV SCH ×4 (00:15→17:17)
[2017-11-03] MEDS: ENALAPRIL 2.5MG/2ML VIAL 2ML IV SCH ×4 (00:27→18:03)
[2017-11-03] MEDS: ACETYLCYSTEINE 100MG/ML 10% VIAL 4ML INH SCH ×3 (00:47→15:36)
[2017-11-03] MEDS: IPRATROPIUM/ALBUTEROL 0.5-3(2.5)MG/3ML NEB HHN SCH ×6 (00:47→20:55)
[2017-11-03] MEDS: SUCRALFATE 1 G/10 ML UDC PO SCH ×4 (06:21→21:00)
[2017-11-03] MEDS: FERROUS SULFATE 300MG/5ML UDC PO SCH ×3 (07:20→16:56)
[2017-11-03] MEDS: NEBIVOLOL HCL 5 MG TABLET PO SCH (09:00)
[2017-11-03] MEDS: LOSARTAN POTASSIUM 50 MG TABLET PO SCH ×2 (09:00→21:00)
[2017-11-03] MEDS: NEOMY SULF/BACITRAC ZN/POLY OINT 28GM TOP SCH ×2 (09:00→21:09)
[2017-11-03] MEDS: FAMOTIDINE 20MG TABLET PO SCH (09:00)
[2017-11-03] MEDS: CLOPIDOGREL 75MG TABLET PO SCH (09:00)
[2017-11-03] MEDS: DOCUSATE SODIUM SUGAR FREE 100MG/10ML UDC NG SCH (09:00)
[2017-11-03] MEDS ORDERED: MAGNESIUM 2 G PREMIX 50 ML IV SCH (09:30)
[2017-11-03] MEDS ORDERED: MAGNESIUM SULFATE 2 GM in SODIUM CHLORIDE 0.9% 50 ML IV SCH (09:30)
[2017-11-03 10:42] LABS: HEMATOCRIT 26.9 % (36.0-48.0); HEMOGLOBIN 8.9 g/dL (12.0-16.0); MEAN CORPUSCULAR HEMOGLOBIN 24.5 pg (28.0-32.0); MEAN CORPUSCULAR VOLUME 74.3 fL (81.0-99.0); PLATELET 375 x1000/uL (130-400); RED BLOOD CELL COUNT 3.62 mill/uL (4.2-5.4); RED CELL DISTRIBUTION WIDTH 21.8 % (11.6-14.6)
[2017-11-03 10:58] LABS: CHLORIDE 106 mEq/L (98-107)
[2017-11-03] MEDS ORDERED: POTASSIUM CHLORIDE INJ 40 MEQ in DEXT 5% WATER 250 ML IV ONE (12:30)
[2017-11-03] MEDS: KCL 20MEQ/100ML PREMIX 100 ML IV SCH ×3 (14:33→22:34)
[2017-11-03] MEDS: ATORVASTATIN CALCIUM 20MG TABLET PO SCH (21:00)
[2017-11-03] MEDS: DEXT 5%/0.45% NACL 1000ML 1,000 ML IV SCH (21:00)
[2017-11-03] MEDS: ENOXAPARIN 30MG/0.3ML SYR SUBCUT SCH (21:07)
[2017-11-04] VITALS (10 sets, daily range): BP systolic 100–177; BP diastolic 55–83
[2017-11-04] MEDS: ENALAPRIL 2.5MG/2ML VIAL 2ML IV SCH ×4 (00:16→17:13)
[2017-11-04] MEDS: IPRATROPIUM/ALBUTEROL 0.5-3(2.5)MG/3ML NEB HHN SCH ×6 (00:45→21:15)
[2017-11-04] MEDS: ACETYLCYSTEINE 100MG/ML 10% VIAL 4ML INH SCH ×3 (00:46→16:52)
[2017-11-04] MEDS: PIPERACILLIN/TAZ 2.25G PREMIX 50 ML IV SCH ×4 (02:41→17:11)
[2017-11-04] MEDS: KCL 20MEQ/100ML PREMIX 100 ML IV SCH (03:39)
[2017-11-04] MEDS: SUCRALFATE 1 G/10 ML UDC PO SCH ×4 (06:50→21:00)
[2017-11-04] MEDS: FERROUS SULFATE 300MG/5ML UDC PO SCH ×3 (07:20→17:06)
[2017-11-04] MEDS: HYDRALAZINE 20MG/ML VIAL IV PRN (08:34)
[2017-11-04 08:43] LABS: HEMATOCRIT. 29.7 % (36.0-48.0); HEMOGLOBIN. 9.3 g/dL (12.0-16.0); MEAN CORPUSCULAR HEMOGLOBIN 23.9 pg (28.0-32.0); PLATELET 378 x1000/uL (130-400); RED CELL DISTRIBUTION WIDTH 22.2 % (11.6-14.6)
[2017-11-04] MEDS: DOCUSATE SODIUM SUGAR FREE 100MG/10ML UDC NG SCH (08:52)
[2017-11-04] MEDS: NEBIVOLOL HCL 5 MG TABLET PO SCH (08:52)
[2017-11-04] MEDS: LOSARTAN POTASSIUM 50 MG TABLET PO SCH ×2 (08:52→21:00)
[2017-11-04] MEDS: CLOPIDOGREL 75MG TABLET PO SCH (08:53)
[2017-11-04] MEDS: FAMOTIDINE 20MG TABLET PO SCH (08:53)
[2017-11-04] MEDS: NEOMY SULF/BACITRAC ZN/POLY OINT 28GM TOP SCH ×2 (09:00→21:59)
[2017-11-04 12:14] LABS: PLATELET ESTIMATE NORMAL
[2017-11-04 12:33] LABS: CHLORIDE 108 mEq/L (98-107)
[2017-11-04] MEDS: HYDRALAZINE 20MG/ML VIAL IV SCH ×2 (12:55→18:25)
[2017-11-04] MEDS: DEXT 5%/0.45% NACL 1000ML 1,000 ML IV SCH (18:25)
[2017-11-04] MEDS: ATORVASTATIN CALCIUM 20MG TABLET PO SCH (21:00)
[2017-11-04] MEDS: ENOXAPARIN 30MG/0.3ML SYR SUBCUT SCH (21:00)
[2017-11-05] VITALS (67 sets, daily range): BP systolic 78–191; BP diastolic 34–124
[2017-11-05] MEDS: PIPERACILLIN/TAZ 2.25G PREMIX 50 ML IV SCH ×4 (00:40→18:19)
[2017-11-05] MEDS: HYDRALAZINE 20MG/ML VIAL IV SCH ×3 (00:42→18:00)
[2017-11-05] MEDS: ENALAPRIL 2.5MG/2ML VIAL 2ML IV SCH ×4 (00:45→18:00)
[2017-11-05] MEDS: ACETYLCYSTEINE 100MG/ML 10% VIAL 4ML INH SCH ×3 (00:51→11:47)
[2017-11-05] MEDS: IPRATROPIUM/ALBUTEROL 0.5-3(2.5)MG/3ML NEB HHN SCH ×5 (00:51→20:28)
[2017-11-05] MEDS: SUCRALFATE 1 G/10 ML UDC PO SCH ×4 (06:30→20:39)
[2017-11-05 06:47] LABS: HEMATOCRIT 28.3 % (36.0-48.0); MEAN CORPUSCULAR VOLUME 75.3 fL (81.0-99.0); PLATELET 363 x1000/uL (130-400); RED BLOOD CELL COUNT 3.76 mill/uL (4.2-5.4); RED CELL DISTRIBUTION WIDTH 22.2 % (11.6-14.6)
[2017-11-05 07:25] LABS: CHLORIDE 107 mEq/L (98-107)
[2017-11-05] MEDS ORDERED: PROPOFOL 200MG/20ML VIAL IV ONE (08:45)
[2017-11-05] MEDS ORDERED: FENTANYL CITRATE/PF 50MCG/ML 2ML VIAL ONE ×3 (08:56→09:53)
[2017-11-05] MEDS: DOCUSATE SODIUM SUGAR FREE 100MG/10ML UDC NG SCH (09:00)
[2017-11-05] MEDS: LOSARTAN POTASSIUM 50 MG TABLET PO SCH ×2 (09:00→20:39)
[2017-11-05] MEDS: FAMOTIDINE 20MG TABLET PO SCH (09:00)
[2017-11-05 10:51] LABS: BG BASE EXCESS -2.5 mmol/L (-2.0-2.0); BG CARBOXYHEMOGLOBIN 0.5 % (0.5-1.5); BG DEOXYHEMOGLOBIN 2.4 % (0.0-5.0); BG FRACTION INSPIRED OXYGEN 60; BG HCO3 ACT 23.3 mmol/L (22.0-26.0); BG METHEMOGLOBIN 0.3 % (0.0-1.5); BG OXYGEN SATURATION 97.6 % (92.0-98.5); BG OXYHEMOGLOBIN 96.8 % (94.0-97.0); BG PCO2 44.7 mmHg (35.0-45.0); BG PH 7.335 (7.350-7.450); BG PO2 107.6 mmHg (75.0-100.0); BG SAMPLE SITE RIGHT RADIAL; BG TIDAL VOLUME(mL) 400 mL; BG TOTAL HEMOGLOBIN 10.7 g/dL (12.0-18.0); BG VENT MODE VENT - A/C; BG VENT RATE 14 set
[2017-11-05] MEDS: DEXT 5%/0.45% NACL 1000ML 1,000 ML IV SCH (11:10)
[2017-11-05] MEDS: FERROUS SULFATE 300MG/5ML UDC PO SCH ×2 (11:25→15:59)
[2017-11-05] MEDS: NEBIVOLOL HCL 5 MG TABLET PO SCH (11:25)
[2017-11-05] MEDS: CLOPIDOGREL 75MG TABLET PO SCH (11:26)
[2017-11-05] MEDS: NEOMY SULF/BACITRAC ZN/POLY OINT 28GM TOP SCH ×2 (12:38→20:41)
[2017-11-05] MEDS ORDERED: LABETALOL 5MG/ML SYR 20 MG/4 ML SYRINGE IV PRN (13:30)
[2017-11-05] MEDS: PROPOFOL 10MG/ML 100ML 100 ML IV PRN (13:44)
[2017-11-05] MEDS: KCL 20MEQ/100ML PREMIX 100 ML IV SCH ×2 (15:00→17:04)
[2017-11-05] MEDS: MORPHINE SULFATE 4 MG/ML CPJ (NOT FOR IM USE) IV PRN ×2 (15:56→20:42)
[2017-11-05] MEDS: ATORVASTATIN CALCIUM 20MG TABLET PO SCH (20:39)
[2017-11-05] MEDS: ENOXAPARIN 30MG/0.3ML SYR SUBCUT SCH (20:40)
[2017-11-06] VITALS (83 sets, daily range): BP systolic 67–153; BP diastolic 34–86
[2017-11-06] MEDS: ENALAPRIL 2.5MG/2ML VIAL 2ML IV SCH ×5 (00:02→23:30)
[2017-11-06] MEDS: MORPHINE SULFATE 4 MG/ML CPJ (NOT FOR IM USE) IV PRN ×2 (00:02→06:04)
[2017-11-06] MEDS: PIPERACILLIN/TAZ 2.25G PREMIX 50 ML IV SCH ×5 (00:03→23:39)
[2017-11-06] MEDS: IPRATROPIUM/ALBUTEROL 0.5-3(2.5)MG/3ML NEB HHN SCH ×4 (01:58→20:24)
[2017-11-06] MEDS: SUCRALFATE 1 G/10 ML UDC PO SCH ×4 (05:00→20:10)
[2017-11-06] MEDS: FERROUS SULFATE 300MG/5ML UDC PO SCH ×3 (05:00→17:00)
[2017-11-06] MEDS: HYDRALAZINE 20MG/ML VIAL IV SCH ×5 (05:03→23:30)
[2017-11-06 05:07] LABS: HEMOGLOBIN. 8.3 g/dL (12.0-16.0); MEAN CORPUSCULAR HEMOGLOBIN 24.2 pg (28.0-32.0); MEAN CORPUSCULAR VOLUME 78.3 fL (81.0-99.0); MEAN PLATELET VOLUME 8.3 fl (7.4-10.4); PLATELET 275 x1000/uL (130-400); RED BLOOD CELL COUNT 3.45 mill/uL (4.2-5.4); RED CELL DISTRIBUTION WIDTH 22.2 % (11.6-14.6)
[2017-11-06 05:13] LABS: CHLORIDE 110 mEq/L (98-107)
[2017-11-06] MEDS ORDERED: ALBUMIN HUMAN 12.5G/250ML (5%) IV PRN (06:15)
[2017-11-06] MEDS: PROPOFOL 10MG/ML 100ML 100 ML IV PRN (06:24)
[2017-11-06] MEDS ORDERED: SODIUM CHLORIDE 0.9% 500 ML IV STA (06:33)
[2017-11-06 08:14] LABS: BG BASE EXCESS -2.4 mmol/L (-2.0-2.0); BG CARBOXYHEMOGLOBIN 0.7 % (0.5-1.5); BG DEOXYHEMOGLOBIN 2.7 % (0.0-5.0); BG FRACTION INSPIRED OXYGEN 50; BG HCO3 ACT 22.8 mmol/L (22.0-26.0); BG METHEMOGLOBIN 0.3 % (0.0-1.5); BG OXYGEN SATURATION 97.3 % (92.0-98.5); BG OXYHEMOGLOBIN 96.3 % (94.0-97.0); BG PCO2 40.8 mmHg (35.0-45.0); BG PH 7.365 (7.350-7.450); BG PO2 100.7 mmHg (75.0-100.0); BG SAMPLE SITE RIGHT RADIAL; BG TIDAL VOLUME(mL) 400 mL; BG VENT MODE VENT - A/C; BG VENT RATE 14 set
[2017-11-06 08:37] LABS: PLATELET ESTIMATE NORMAL
[2017-11-06] MEDS: LOSARTAN POTASSIUM 50 MG TABLET PO SCH ×2 (09:00→20:10)
[2017-11-06] MEDS: DOCUSATE SODIUM SUGAR FREE 100MG/10ML UDC NG SCH (09:00)
[2017-11-06] MEDS: FAMOTIDINE 20MG TABLET PO SCH (09:00)
[2017-11-06] MEDS: CLOPIDOGREL 75MG TABLET PO SCH (09:00)
[2017-11-06] MEDS: NEBIVOLOL HCL 5 MG TABLET PO SCH (09:00)
[2017-11-06] MEDS: NEOMY SULF/BACITRAC ZN/POLY OINT 28GM TOP SCH ×2 (09:35→20:48)
[2017-11-06 11:18] LABS: BG CARBOXYHEMOGLOBIN 0.3 % (0.5-1.5); BG DEOXYHEMOGLOBIN 2.5 % (0.0-5.0); BG FRACTION INSPIRED OXYGEN 50; BG HCO3 ACT 23.2 mmol/L (22.0-26.0); BG OXYGEN SATURATION 97.5 % (92.0-98.5); BG OXYHEMOGLOBIN 97.2 % (94.0-97.0); BG PCO2 41.4 mmHg (35.0-45.0); BG PH 7.367 (7.350-7.450); BG PO2 104.6 mmHg (75.0-100.0); BG PRESSURE SUPPORT 14; BG SAMPLE SITE RIGHT RADIAL; BG TIDAL VOLUME(mL) 400 mL; BG TOTAL HEMOGLOBIN 9.2 g/dL (12.0-18.0); BG VENT MODE VENT - SIMV; BG VENT RATE 8 set
[2017-11-06] MEDS: DEXT 5%/0.45% NACL 1000ML 1,000 ML IV SCH ×2 (12:40→23:39)
[2017-11-06 14:21] LABS: BG BASE EXCESS -1.7 mmol/L (-2.0-2.0); BG CARBOXYHEMOGLOBIN 0.1 % (0.5-1.5); BG DEOXYHEMOGLOBIN 2.2 % (0.0-5.0); BG HCO3 ACT 23.3 mmol/L (22.0-26.0); BG METHEMOGLOBIN 0.1 % (0.0-1.5); BG OXYGEN SATURATION 97.8 % (92.0-98.5); BG OXYHEMOGLOBIN 97.6 % (94.0-97.0); BG PCO2 40.2 mmHg (35.0-45.0); BG PH 7.381 (7.350-7.450); BG PO2 110.4 mmHg (75.0-100.0); BG SAMPLE SITE RIGHT RADIAL; BG TIDAL VOLUME(mL) 400 mL; BG TOTAL HEMOGLOBIN 9.4 g/dL (12.0-18.0); BG VENT MODE VENT - SIMV; BG VENT RATE 6 set
[2017-11-06 17:23] LABS: BG BASE EXCESS -1.4 mmol/L (-2.0-2.0); BG CARBOXYHEMOGLOBIN 0.1 % (0.5-1.5); BG CPAP (cmH2O) 0 cm(H2O); BG DEOXYHEMOGLOBIN 2.4 % (0.0-5.0); BG HCO3 ACT 23.4 mmol/L (22.0-26.0); BG METHEMOGLOBIN 0.3 % (0.0-1.5); BG OXYGEN SATURATION 97.6 % (92.0-98.5); BG OXYHEMOGLOBIN 97.2 % (94.0-97.0); BG PCO2 39.1 mmHg (35.0-45.0); BG PH 7.394 (7.350-7.450); BG PO2 99.9 mmHg (75.0-100.0); BG SAMPLE SITE RIGHT BRACHIAL; BG TOTAL HEMOGLOBIN 9.3 g/dL (12.0-18.0); BG VENT MODE VENT - CPAP
[2017-11-06] MEDS: ATORVASTATIN CALCIUM 20MG TABLET PO SCH (20:10)
[2017-11-06 20:44] LABS: BG BASE EXCESS -1.4 mmol/L (-2.0-2.0); BG CARBOXYHEMOGLOBIN 0.3 % (0.5-1.5); BG DEOXYHEMOGLOBIN 2.7 % (0.0-5.0); BG FRACTION INSPIRED OXYGEN 60; BG HCO3 ACT 23.8 mmol/L (22.0-26.0); BG METHEMOGLOBIN 0.2 % (0.0-1.5); BG OXYGEN SATURATION 97.3 % (92.0-98.5); BG OXYHEMOGLOBIN 96.8 % (94.0-97.0); BG PH 7.371 (7.350-7.450); BG PO2 96.9 mmHg (75.0-100.0); BG SAMPLE SITE RIGHT RADIAL; BG TOTAL HEMOGLOBIN 10.1 g/dL (12.0-18.0); BG VENT MODE MASK - AEROSOL
[2017-11-07] VITALS (59 sets, daily range): BP systolic 94–153; BP diastolic 33–124
[2017-11-07] MEDS: IPRATROPIUM/ALBUTEROL 0.5-3(2.5)MG/3ML NEB HHN SCH ×3 (00:36→08:17)
[2017-11-07] MEDS: HYDRALAZINE 20MG/ML VIAL IV SCH (05:10)
[2017-11-07] MEDS: ENALAPRIL 2.5MG/2ML VIAL 2ML IV SCH (05:11)
[2017-11-07] MEDS ORDERED: FUROSEMIDE 40MG/4ML VIAL IVP NR (05:15)
[2017-11-07] MEDS: PIPERACILLIN/TAZ 2.25G PREMIX 50 ML IV SCH ×4 (05:32→23:43)
[2017-11-07] MEDS: SUCRALFATE 1 G/10 ML UDC PO SCH ×4 (05:32→20:06)
[2017-11-07 05:39] LABS: HEMATOCRIT. 27.2 % (36.0-48.0); HEMOGLOBIN. 8.3 g/dL (12.0-16.0); MEAN CORPUSCULAR HEMOGLOBIN 23.9 pg (28.0-32.0); MEAN CORPUSCULAR VOLUME 77.9 fL (81.0-99.0); MEAN PLATELET VOLUME 8.3 fl (7.4-10.4); PLATELET 284 x1000/uL (130-400); RED BLOOD CELL COUNT 3.49 mill/uL (4.2-5.4); RED CELL DISTRIBUTION WIDTH 21.7 % (11.6-14.6)
[2017-11-07 05:48] LABS: CHLORIDE 107 mEq/L (98-107)
[2017-11-07 06:57] LABS: BG BASE EXCESS -1.1 mmol/L (-2.0-2.0); BG CARBOXYHEMOGLOBIN 0.3 % (0.5-1.5); BG DEOXYHEMOGLOBIN 3.2 % (0.0-5.0); BG HCO3 ACT 23.5 mmol/L (22.0-26.0); BG METHEMOGLOBIN 0.3 % (0.0-1.5); BG OXYGEN SATURATION 96.8 % (92.0-98.5); BG OXYHEMOGLOBIN 96.2 % (94.0-97.0); BG PCO2 38.7 mmHg (35.0-45.0); BG PH 7.402 (7.350-7.450); BG PO2 94.1 mmHg (75.0-100.0); BG SAMPLE SITE RIGHT RADIAL; BG TOTAL HEMOGLOBIN 9.4 g/dL (12.0-18.0); BG VENT MODE MASK - AEROSOL
[2017-11-07] MEDS: FERROUS SULFATE 300MG/5ML UDC PO SCH ×3 (07:00→16:40)
[2017-11-07] MEDS ORDERED: LORAZEPAM 2MG/ML CPJ IV SCH (08:15)
[2017-11-07 08:24] LABS: BG BASE EXCESS -3.1 mmol/L (-2.0-2.0); BG CARBOXYHEMOGLOBIN 0.6 % (0.5-1.5); BG FRACTION INSPIRED OXYGEN 99.8; BG HCO3 ACT 20.8 mmol/L (22.0-26.0); BG METHEMOGLOBIN 0.2 % (0.0-1.5); BG OXYHEMOGLOBIN 94.2 % (94.0-97.0); BG PCO2 32.9 mmHg (35.0-45.0); BG PH 7.419 (7.350-7.450); BG PO2 73.6 mmHg (75.0-100.0); BG SAMPLE SITE RIGHT RADIAL; BG TOTAL HEMOGLOBIN 9.4 g/dL (12.0-18.0); BG VENT MODE MASK - NRB
[2017-11-07] MEDS ORDERED: POTASSIUM CHLORIDE 20MEQ TABLET SR PO SCH (08:30)
[2017-11-07] MEDS ORDERED: ALBUTEROL (0.083%) 2.5MG/3ML NEB HHN PRN (08:45)
[2017-11-07] MEDS: DOCUSATE SODIUM SUGAR FREE 100MG/10ML UDC NG SCH (08:48)
[2017-11-07] MEDS: CLOPIDOGREL 75MG TABLET PO SCH (08:53)
[2017-11-07] MEDS: ENOXAPARIN 30MG/0.3ML SYR SUBCUT SCH (08:53)
[2017-11-07] MEDS: NEBIVOLOL HCL 5 MG TABLET PO SCH (08:53)
[2017-11-07] MEDS: FAMOTIDINE 20MG TABLET PO SCH (08:53)
[2017-11-07] MEDS: ENALAPRIL 5MG TABLET GT SCH ×2 (08:54→20:26)
[2017-11-07] MEDS: LOSARTAN POTASSIUM 50 MG TABLET PO SCH ×2 (08:54→20:26)
[2017-11-07] MEDS: NEOMY SULF/BACITRAC ZN/POLY OINT 28GM TOP SCH ×2 (08:54→20:27)
[2017-11-07 10:28] LABS: PLATELET ESTIMATE NORMAL
[2017-11-07] MEDS: ACETYLCYSTEINE 100MG/ML 10% VIAL 4ML INH SCH ×3 (12:08→20:43)
[2017-11-07] MEDS: ALBUTEROL (0.083%) 2.5MG/3ML NEB HHN SCH ×3 (12:08→20:42)
[2017-11-07] MEDS ORDERED: LORAZEPAM 2MG/ML CPJ IV PRN (12:30)
[2017-11-07] MEDS ORDERED: DEXTROSE 50% WATER 50ML SYRINGE IV ONE (14:13)
[2017-11-07] MEDS ORDERED: DEXTROSE 50% WATER 50ML SYRINGE IV NR (15:15)
[2017-11-07] MEDS: LORAZEPAM 2MG/ML CPJ IV PRN ×3 (16:35→23:03)
[2017-11-07] MEDS ORDERED: ACETAMINOPHEN 650MG/20.3ML UDC PO PRN (18:00)
[2017-11-07] MEDS ORDERED: DEXTROSE 50% WATER 50ML SYRINGE IV PRN (19:00)
[2017-11-07] MEDS: BLOOD SUGAR DIAGNOSTIC STRIP TEST SCH (20:00)
[2017-11-07] MEDS: ATORVASTATIN CALCIUM 20MG TABLET PO SCH (20:06)
[2017-11-08] VITALS (49 sets, daily range): BP systolic 75–185; BP diastolic 34–100
[2017-11-08] MEDS: ALBUTEROL (0.083%) 2.5MG/3ML NEB HHN SCH ×6 (01:03→21:27)
[2017-11-08] MEDS: ACETYLCYSTEINE 100MG/ML 10% VIAL 4ML INH SCH ×5 (01:03→16:41)
[2017-11-08] MEDS: LORAZEPAM 2MG/ML CPJ IV PRN (01:20)
[2017-11-08] MEDS: BLOOD SUGAR DIAGNOSTIC STRIP TEST SCH ×6 (04:00→20:00)
[2017-11-08 04:11] LABS: BG BASE EXCESS -1.5 mmol/L (-2.0-2.0); BG CARBOXYHEMOGLOBIN 0.3 % (0.5-1.5); BG DEOXYHEMOGLOBIN 11.7 % (0.0-5.0); BG FRACTION INSPIRED OXYGEN 100; BG HCO3 ACT 22.9 mmol/L (22.0-26.0); BG METHEMOGLOBIN 0.3 % (0.0-1.5); BG OXYGEN SATURATION 88.2 % (92.0-98.5); BG OXYHEMOGLOBIN 87.7 % (94.0-97.0); BG PCO2 37.1 mmHg (35.0-45.0); BG PH 7.408 (7.350-7.450); BG PO2 56.1 mmHg (75.0-100.0); BG SAMPLE SITE OTHER; BG TOTAL HEMOGLOBIN 8.5 g/dL (12.0-18.0); BG VENT MODE MASK - NRB
[2017-11-08 05:45] LABS: HEMATOCRIT. 22.3 % (36.0-48.0); MEAN CORPUSCULAR HEMOGLOBIN 23.8 pg (28.0-32.0); MEAN CORPUSCULAR VOLUME 77.1 fL (81.0-99.0); MEAN PLATELET VOLUME 8.7 fl (7.4-10.4); PLATELET 232 x1000/uL (130-400); RED BLOOD CELL COUNT 2.89 mill/uL (4.2-5.4); RED CELL DISTRIBUTION WIDTH 21.2 % (11.6-14.6)
[2017-11-08] MEDS: SUCRALFATE 1 G/10 ML UDC PO SCH ×4 (06:17→21:00)
[2017-11-08] MEDS: FERROUS SULFATE 300MG/5ML UDC PO SCH ×3 (06:18→16:44)
[2017-11-08] MEDS: PIPERACILLIN/TAZ 2.25G PREMIX 50 ML IV SCH ×3 (06:18→17:19)
[2017-11-08 06:21] LABS: CHLORIDE 109 mEq/L (98-107)
[2017-11-08 06:23] LABS: HEMOGLOBIN. 6.9 g/dL (12.0-16.0)
[2017-11-08 07:51] LABS: BG BASE EXCESS 2.7 mmol/L (-2.0-2.0); BG CARBOXYHEMOGLOBIN 0.9 % (0.5-1.5); BG FRACTION INSPIRED OXYGEN 100; BG HCO3 ACT 27.2 mmol/L (22.0-26.0); BG METHEMOGLOBIN 0.3 % (0.0-1.5); BG OXYHEMOGLOBIN 97.8 % (94.0-97.0); BG PCO2 41.7 mmHg (35.0-45.0); BG PH 7.433 (7.350-7.450); BG PO2 165.8 mmHg (75.0-100.0); BG SAMPLE SITE LEFT RADIAL; BG TOTAL HEMOGLOBIN 8.1 g/dL (12.0-18.0); BG VENT MODE MASK - BIPAP
[2017-11-08] MEDS ORDERED: POTASSIUM CHLORIDE INJ 40 MEQ in DEXT 5% WATER 250 ML IV NR (08:00)
[2017-11-08] MEDS ORDERED: PROPOFOL 10MG/ML 100ML 100 ML IV PRN (08:15)
[2017-11-08] MEDS: FAMOTIDINE 20MG TABLET PO SCH (08:55)
[2017-11-08] MEDS: DOCUSATE SODIUM SUGAR FREE 100MG/10ML UDC NG SCH (08:55)
[2017-11-08] MEDS: ENOXAPARIN 30MG/0.3ML SYR SUBCUT SCH (08:55)
[2017-11-08] MEDS: LOSARTAN POTASSIUM 50 MG TABLET PO SCH ×2 (08:55→21:00)
[2017-11-08] MEDS: ENALAPRIL 5MG TABLET GT SCH ×2 (08:55→21:00)
[2017-11-08] MEDS: NEBIVOLOL HCL 5 MG TABLET PO SCH (08:56)
[2017-11-08] MEDS: CLOPIDOGREL 75MG TABLET PO SCH (08:56)
[2017-11-08] MEDS ORDERED: VANCOMYCIN 1 G PREMIX 200 ML IV SCH (09:00)
[2017-11-08] MEDS: NEOMY SULF/BACITRAC ZN/POLY OINT 28GM TOP SCH ×2 (10:00→21:00)
[2017-11-08 12:32] LABS: PLATELET ESTIMATE NORMAL
[2017-11-08] MEDS: MORPHINE SULFATE 100 MG in DEXT 5% WATER 90 ML IV PRN (17:18)
[2017-11-08] MEDS: ATORVASTATIN CALCIUM 20MG TABLET PO SCH (21:00)
[2017-11-09] VITALS (35 sets, daily range): BP systolic 66–80; BP diastolic 29–39
[2017-11-09] MEDS ORDERED: VANCOMYCIN 750 MG PREMIX 150 ML IV SCH
[2017-11-09] MEDS: MORPHINE SULFATE 100 MG in DEXT 5% WATER 90 ML IV PRN ×3 (00:48→19:38)
[2017-11-09] MEDS: BLOOD SUGAR DIAGNOSTIC STRIP TEST SCH ×3 (04:00→08:00)
[2017-11-09] MEDS: ALBUTEROL (0.083%) 2.5MG/3ML NEB HHN SCH ×2 (04:33→08:42)
[2017-11-09] MEDS: PIPERACILLIN/TAZ 2.25G PREMIX 50 ML IV SCH ×2 (06:00)
[2017-11-09] MEDS: SUCRALFATE 1 G/10 ML UDC PO SCH (06:30)
[2017-11-09] MEDS: FERROUS SULFATE 300MG/5ML UDC PO SCH (07:00)
[2017-11-09] MEDS: ACETYLCYSTEINE 100MG/ML 10% VIAL 4ML INH SCH (08:39)
[2017-11-09] MEDS: NEBIVOLOL HCL 5 MG TABLET PO SCH (09:00)
[2017-11-09] MEDS: FAMOTIDINE 20MG TABLET PO SCH (09:00)
[2017-11-09] MEDS: ENALAPRIL 5MG TABLET GT SCH (09:00)
[2017-11-09] MEDS: DOCUSATE SODIUM SUGAR FREE 100MG/10ML UDC NG SCH (09:00)
[2017-11-09] MEDS: LOSARTAN POTASSIUM 50 MG TABLET PO SCH (09:00)
[2017-11-09] MEDS: NEOMY SULF/BACITRAC ZN/POLY OINT 28GM TOP SCH (09:20)
== END 2017-11-10 02:10 | disposition expired | DRG 853 ==
LOC: 7WST 15:19 → 3WST 10-29 18:54 → MICUSO 11-05 10:11 → 8WST 11-09 17:30
PROVIDERS: ADMIT Internal Medicine; ATTEND Internal Medicine
PROC: 0DJ68ZZ Inspection of Stomach, Via Natural or Artificial Opening Endoscopic (ICD-10-PCS; 2017-10-27)
PROC: 0DH60UZ Insertion of Feeding Device into Stomach, Open Approach (ICD-10-PCS; 2017-10-29)
PROC: 5A09357 Assistance with Respiratory Ventilation, Less than 24 Consecutive Hours, Continuous Positive Airway Pressure (ICD-10-PCS; 2017-10-29)
PROC: 5A09357 Assistance with Respiratory Ventilation, Less than 24 Consecutive Hours, Continuous Positive Airway Pressure (ICD-10-PCS; 2017-10-30)
PROC: 5A09357 Assistance with Respiratory Ventilation, Less than 24 Consecutive Hours, Continuous Positive Airway Pressure (ICD-10-PCS; 2017-10-31)
PROC: 5A09357 Assistance with Respiratory Ventilation, Less than 24 Consecutive Hours, Continuous Positive Airway Pressure (ICD-10-PCS; 2017-11-01)
PROC: 5A1945Z Respiratory Ventilation, 24-96 Consecutive Hours (ICD-10-PCS; 2017-11-05)
PROC: 0DP60UZ Removal of Feeding Device from Stomach, Open Approach (ICD-10-PCS; 2017-11-05)
PROC: 0BH17EZ Insertion of Endotracheal Airway into Trachea, Via Natural or Artificial Opening (ICD-10-PCS; 2017-11-05)
PROC: 0DH60UZ Insertion of Feeding Device into Stomach, Open Approach (ICD-10-PCS; principal; 2017-11-05 09:00)
PROC: 5A09357 Assistance with Respiratory Ventilation, Less than 24 Consecutive Hours, Continuous Positive Airway Pressure (ICD-10-PCS; 2017-11-08)
DX: A41.9 Sepsis, unspecified organism (principal); E43 Unspecified severe protein-calorie malnutrition; J96.01 Acute respiratory failure with hypoxia; J69.0 Pneumonitis due to inhalation of food and vomit; G93.41 Metabolic encephalopathy; Z68.1 Body mass index [BMI] 19.9 or less, adult; J84.9 Interstitial pulmonary disease, unspecified; Z43.1 Encounter for attention to gastrostomy; I67.82 Cerebral ischemia; M48.02 Spinal stenosis, cervical region; M34.9 Systemic sclerosis, unspecified; I50.9 Heart failure, unspecified; R26.9 Unspecified abnormalities of gait and mobility; M81.0 Age-related osteoporosis without current pathological fracture; K22.0 Achalasia of cardia; I73.00 Raynaud's syndrome without gangrene; E78.5 Hyperlipidemia, unspecified; K21.9 Gastro-esophageal reflux disease without esophagitis; E53.8 Deficiency of other specified B group vitamins; D50.9 Iron deficiency anemia, unspecified; E78.00 Pure hypercholesterolemia, unspecified; E86.0 Dehydration; E87.6 Hypokalemia; I07.1 Rheumatic tricuspid insufficiency; I11.0 Hypertensive heart disease with heart failure; I27.20 Pulmonary hypertension, unspecified; K22.2 Esophageal obstruction; M47.894 Other spondylosis, thoracic region; Z96.619 Presence of unspecified artificial shoulder joint; Z53.9 Procedure and treatment not carried out, unspecified reason; M48.05 Spinal stenosis, thoracolumbar region; Z96.641 Presence of right artificial hip joint; R54 Age-related physical debility; Z51.5 Encounter for palliative care; Z66 Do not resuscitate; Z82.49 Family history of ischemic heart disease and other diseases of the circulatory system; Z86.73 Personal history of transient ischemic attack (TIA), and cerebral infarction without residual deficits; Z87.891 Personal history of nicotine dependence; Z99.81 Dependence on supplemental oxygen; Z90.710 Acquired absence of both cervix and uterus; T85.898A Other specified complication of other internal prosthetic devices, implants and grafts, initial encounter; Y83.3 Surgical operation with formation of external stoma as the cause of abnormal reaction of the patient, or of later complication, without mention of misadventure at the time of the procedure; Y92.238 Other place in hospital as the place of occurrence of the external cause; S20.411A Abrasion of right back wall of thorax, initial encounter; X58.XXXA Exposure to other specified factors, initial encounter
CPT/HCPCS: 36415; 36600; 49450; 71045; 80048; 80053; 82375; 82805; 82962; 83735; 84134; 84145; 84478; 85025; 85027; 85610; 85730; 86850; 86900; 86920; 87040; 92610; 93005; 93970; 94002; 94640; 94660; 94667; 97162; 97164; 97166; 97168; 97530; A4216; A6261; C1769; C1892; C9113; J0330; J0360; J0690; J1170; J1650; J1940; J2060; J2250; J2270; J2370; J2405; J2543; J2704; J2710; J2765; J3010; J3370; J3475; J3480; J3490; J7040; J7050; J7060; J7120; J7608; J7611; J7620; P9041; Q9967; A4315